=== PATIENT | female | born 1935 | race Caucasian/White ===

== ENCOUNTER 2019-01-10 13:39 | Inpatient (IN) | payer OTHER, BC ==
[~2019-01-10] VITALS: Ht 162.6 cm; Wt 77.6 kg
[2019-01-10 13:57] VITALS: BP_SYST 171
[2019-01-10] MEDS ORDERED: NS 500 ML IV ONE (14:15)
[2019-01-10 14:42] LABS: BASOPHILS % (AUTO) 0.6 % (0.0-2.0); EOSINOPHILS # (AUTO) 0.3 K/uL (0.0-0.4); EOSINOPHILS % (AUTO) 3.1 % (0.0-4.0); HEMATOCRIT 40.2 % (36-48); HEMOGLOBIN 14.2 g/dL (12.0-16.0); LYMPHOCYTES # (AUTO) 1.5 K/uL (1.0-5.5); LYMPHOCYTES % (AUTO) 17.3 % (20.5-51.5); MEAN CORPUSCULAR HEMOGLOBIN 34 pg (27-31); MEAN CORPUSCULAR HGB CONC 35 % (32-36); MEAN CORPUSCULAR VOLUME 97 fL (79.0-98.0); MONOCYTES # (AUTO) 0.4 K/uL (0.0-1.0); MONOCYTES % (AUTO) 4.8 % (1.7-9.3); NEUTROPHILS # (AUTO) 6.5 K/uL (1.8-7.7); NEUTROPHILS % (AUTO) 74.2 % (40.0-70.0); PLATELET COUNT (AUTO) 238 K/uL (130-430); RED BLOOD CELL COUNT(AUTO) 4.16 MIL/uL (4.2-6.2); WHITE BLOOD COUNT (AUTO) 8.7 K/uL (4.8-10.8)
[2019-01-10 14:56] LABS: ANION GAP 10 (5-15); CALCIUM 9.7 mg/dL (8.4-11.0); CHLORIDE 97 mmol/L (98-107); CREATININE 0.87 mg/dL (0.55-1.30); GLUCOSE 317 mg/dL (70-99); POTASSIUM 3.9 mmol/L (3.5-5.1); SODIUM SERUM 134 mmol/L (136-145); UREA NITROGEN, BLOOD 17 mg/dL (8-21)
[2019-01-10 15:10] LABS: ALANINE AMINOTRANSFERASE 39 U/L (12-78); ALBUMIN 4.2 g/dL (3.4-4.8); ASPARTATE AMINOTRANSFERASE 19 U/L (10-37); TOTAL BILIRUBIN 0.4 mg/dL (0.0-1.0)
[2019-01-10 15:44] LABS: BILIRUBIN,URINE NEGATIVE (NEGATIVE); CLARITY/URINE CLEAR (CLEAR); COLOR,URINE YELLOW (YELLOW); GLUCOSE,URINE 3+ (NEGATIVE); KETONES,URINE NEGATIVE (NEGATIVE); LEUKOCYTE ESTERASE ,URINE NEGATIVE (NEGATIVE); NITRITE, URINE NEGATIVE (NEGATIVE); PH,URINE 6.5 (5.0-8.0); PROTEIN URINE NEGATIVE (NEGATIVE); UROBILINOGEN,URINE 0.2 (0.2-1.0)
[2019-01-10] MEDS ORDERED: NACL 0.9% 2,000 ML IV ONE (15:45)
[2019-01-10 15:50] LABS: BLOOD, URINE TRACE (NEGATIVE)
[2019-01-10 15:59] LABS: BACTERIA,URINE None Seen /HPF (None Seen); MUCUS,URINE 1+ /LPF (None Seen); WBC,URINE 0-3 /HPF (0-3)
[2019-01-10] MEDS ORDERED: DEXTROSE 50%-WATER 50 ML DISP.SYRIN IVP PRN (18:00)
[2019-01-10] MEDS ORDERED: D5W 1,000 ML IV PRN (18:00)
[2019-01-10] MEDS ORDERED: GLUCOSE 15 GM GEL (in 37.5 GM TUBE) PO PRN (18:00)
[2019-01-10] MEDS ORDERED: BISA10SU61 RC (19:03)
[2019-01-10] MEDS ORDERED: DONE10TA44 PO (19:03)
[2019-01-10] MEDS ORDERED: LIP40 PO (19:03)
[2019-01-10] MEDS ORDERED: CLOP100P MC (19:03)
[2019-01-10] MEDS ORDERED: CILO100T PO (19:03)
[2019-01-10] MEDS ORDERED: FER300L PO (19:03)
[2019-01-10] MEDS ORDERED: DOCU-144 PO (19:03)
[2019-01-10 19:10] VITALS: BP_SYST 145
[2019-01-10 20:00] VITALS: BP_SYST 148
[2019-01-10] MEDS: INSULIN REGULAR, HUMAN 100 UNITS/ML, 10 ML VIAL (humuLIN R) SUBCUT PRN (21:06)
[2019-01-10] MEDS ORDERED: GABA-531 PO (21:15)
[2019-01-10] MEDS ORDERED: FLEETMO RC (21:15)
[2019-01-10] MEDS: LORazepam 2 MG/ML VIAL IVP PRN (21:27)
[2019-01-10] MEDS: NACL 0.9% 1,000 ML IV SCH (22:47)
[2019-01-11] VITALS: BP_SYST 138
[2019-01-11] MEDS: INSULIN REGULAR, HUMAN 100 UNITS/ML, 10 ML VIAL (humuLIN R) SUBCUT PRN ×3 (00:16→17:45)
[2019-01-11] MEDS ORDERED: MULT-1100 PO (01:02)
[2019-01-11] MEDS ORDERED: INSU100I4 SUBCUT (01:02)
[2019-01-11] MEDS ORDERED: MEMA5TAB PO (01:02)
[2019-01-11] MEDS ORDERED: ACET-2634 PO (01:02)
[2019-01-11] MEDS ORDERED: GLU500 PO (01:02)
[2019-01-11] MEDS ORDERED: MOM PO (01:02)
[2019-01-11] MEDS ORDERED: CHOL100062 PO (01:55)
[2019-01-11] MEDS ORDERED: ACET-2165 PO (01:55)
[2019-01-11] MEDS ORDERED: AZITHROMYCIN 500 MG in NS 250 ML IV SCH (02:15)
[2019-01-11] MEDS ORDERED: cefTRIAXone 1 GM in D5W 50 ML IV SCH (02:15)
[2019-01-11] MEDS ORDERED: NACL 0.9% 1,000 ML IV ONE ×2 (02:15)
[2019-01-11] MEDS ORDERED: cefTRIAXone 1 GM IVPB PREMIX 50 ML IV ONE (02:48)
[2019-01-11] MEDS ORDERED: AZITHROMYCIN 500 MG/VIAL (ZITHROMAX) IV ONE (02:48)
[2019-01-11 08:00] VITALS: BP_SYST 132
[2019-01-11] MEDS: LEVOFLOXACIN 250 MG/D5W 50 ML IV SCH (09:21)
[2019-01-11 12:08] VITALS: BP_SYST 124
[2019-01-11] MEDS: NACL 0.9% 1,000 ML IV SCH (14:46)
[2019-01-11 16:09] VITALS: BP_SYST 156
[2019-01-11 21:20] VITALS: BP_SYST 123
[2019-01-12 00:40] VITALS: BP_SYST 126
[2019-01-12] MEDS ORDERED: cefTRIAXone 1 GM IVPB PREMIX 50 ML IV ONE (03:03)
[2019-01-12] MEDS ORDERED: AZITHROMYCIN 500 MG/VIAL (ZITHROMAX) IV ONE (03:04)
[2019-01-12] MEDS: cefTRIAXone 1 GM in D5W 50 ML IV SCH (03:15)
[2019-01-12] MEDS: AZITHROMYCIN 500 MG in NS 250 ML IV SCH (03:17)
[2019-01-12] MEDS: LORazepam 2 MG/ML VIAL IVP PRN (04:53)
[2019-01-12 05:08] VITALS: BP_SYST 134
[2019-01-12] MEDS: INSULIN REGULAR, HUMAN 100 UNITS/ML, 10 ML VIAL (humuLIN R) SUBCUT PRN ×3 (07:04→17:59)
[2019-01-12 07:29] LABS: BASOPHILS % (AUTO) 0.6 % (0.0-2.0); EOSINOPHILS # (AUTO) 0.2 K/uL (0.0-0.4); EOSINOPHILS % (AUTO) 3.8 % (0.0-4.0); HEMATOCRIT 34.5 % (36-48); HEMOGLOBIN 12.2 g/dL (12.0-16.0); LYMPHOCYTES # (AUTO) 1.6 K/uL (1.0-5.5); LYMPHOCYTES % (AUTO) 24.6 % (20.5-51.5); MEAN CORPUSCULAR HEMOGLOBIN 34 pg (27-31); MEAN CORPUSCULAR HGB CONC 35 % (32-36); MEAN CORPUSCULAR VOLUME 96 fL (79.0-98.0); MONOCYTES # (AUTO) 0.4 K/uL (0.0-1.0); MONOCYTES % (AUTO) 6.3 % (1.7-9.3); NEUTROPHILS # (AUTO) 4.2 K/uL (1.8-7.7); NEUTROPHILS % (AUTO) 64.7 % (40.0-70.0); PLATELET COUNT (AUTO) 216 K/uL (130-430); RED BLOOD CELL COUNT(AUTO) 3.61 MIL/uL (4.2-6.2); RED CELL DISTRIBUTION WIDTH 12.7 % (9.0-15.0); WHITE BLOOD COUNT (AUTO) 6.4 K/uL (4.8-10.8)
[2019-01-12 07:44] LABS: ALANINE AMINOTRANSFERASE 29 U/L (12-78); ALBUMIN 3.2 g/dL (3.4-4.8); ANION GAP 7 (5-15); ASPARTATE AMINOTRANSFERASE 22 U/L (10-37); CALCIUM 8.2 mg/dL (8.4-11.0); CHLORIDE 105 mmol/L (98-107); CREATININE 0.78 mg/dL (0.55-1.30); GLUCOSE 193 mg/dL (70-99); POTASSIUM 3.3 mmol/L (3.5-5.1); SODIUM SERUM 139 mmol/L (136-145); TOTAL BILIRUBIN 0.5 mg/dL (0.0-1.0); UREA NITROGEN, BLOOD 10 mg/dL (8-21)
[2019-01-12 08:00] VITALS: BP_SYST 131
[2019-01-12] MEDS: LEVOFLOXACIN 250 MG/D5W 50 ML IV SCH (09:00)
[2019-01-12] MEDS: NACL 0.9% 1,000 ML IV SCH (10:00)
[2019-01-12 12:00] VITALS: BP_SYST 145
[2019-01-12] MEDS ORDERED: MILK OF MAGNESIA 30 ML UDC PO PRN (12:30)
[2019-01-12] MEDS ORDERED: ACETAMINOPHEN 500 MG TABLET PO PRN (12:30)
[2019-01-12] MEDS ORDERED: BISACODYL 10 MG/SUPPOSITORY RC PRN (12:45)
[2019-01-12] MEDS ORDERED: MEMANTINE HCL 5 MG TABLET PO ONE (13:00)
[2019-01-12] MEDS ORDERED: DOCUSATE SODIUM 100 MG CAPSULE PO ONE (13:00)
[2019-01-12] MEDS ORDERED: FERROUS SULFATE 300 MG/5 ML UDC PO ONE (13:00)
[2019-01-12] MEDS ORDERED: MULTIVITS,CA,MINERALS/IRON/FA 1 TABLET PO ONE (13:00)
[2019-01-12] MEDS ORDERED: CLOPIDOGREL BISULFATE 75 MG TABLET PO ONE (13:00)
[2019-01-12] MEDS ORDERED: CHOLECALCIFEROL (VITAMIN D3) 2,000 UNIT TABLET PO ONE (13:00)
[2019-01-12] MEDS ORDERED: GABAPENTIN 300 MG CAPSULE PO ONE (13:00)
[2019-01-12] MEDS: LORazepam 1 MG TABLET PO PRN ×2 (14:38→21:14)
[2019-01-12 16:07] VITALS: BP_SYST 138
[2019-01-12] MEDS: metFORMIN HCL 500 MG TABLET PO SCH (17:56)
[2019-01-12 20:00] VITALS: BP_SYST 143
[2019-01-12] MEDS: ATORVASTATIN 20 MG TABLET PO SCH (21:12)
[2019-01-12] MEDS: FERROUS SULFATE 300 MG/5 ML UDC PO SCH (21:12)
[2019-01-12] MEDS: MEMANTINE HCL 5 MG TABLET PO SCH (21:12)
[2019-01-12] MEDS: GABAPENTIN 300 MG CAPSULE PO SCH (21:12)
[2019-01-12] MEDS: QUEtiapine FUMARATE 100 MG TABLET PO SCH (21:12)
[2019-01-12] MEDS: DONEPEZIL HCL 5 MG TABLET (ARICEPT) PO SCH (21:12)
[2019-01-13] VITALS (7 sets, daily range): BP systolic 102–141
[2019-01-13] MEDS: AZITHROMYCIN 500 MG in NS 250 ML IV SCH (01:45)
[2019-01-13] MEDS: cefTRIAXone 1 GM in D5W 50 ML IV SCH (03:31)
[2019-01-13] MEDS: NACL 0.9% 1,000 ML IV SCH (07:00)
[2019-01-13] MEDS: INSULIN REGULAR, HUMAN 100 UNITS/ML, 10 ML VIAL (humuLIN R) SUBCUT PRN ×3 (07:19→17:36)
[2019-01-13] MEDS: CILOSTAZOL 50 MG TABLET (PLETAL) PO SCH (07:20)
[2019-01-13] MEDS: DOCUSATE SODIUM 100 MG CAPSULE PO SCH (08:51)
[2019-01-13] MEDS: FERROUS SULFATE 300 MG/5 ML UDC PO SCH ×2 (08:51→20:53)
[2019-01-13] MEDS: MULTIVITS,CA,MINERALS/IRON/FA 1 TABLET PO SCH (08:52)
[2019-01-13] MEDS: MEMANTINE HCL 5 MG TABLET PO SCH ×2 (08:52→20:54)
[2019-01-13] MEDS: CHOLECALCIFEROL (VITAMIN D3) 2,000 UNIT TABLET PO SCH (08:52)
[2019-01-13] MEDS: CLOPIDOGREL BISULFATE 75 MG TABLET PO SCH (08:53)
[2019-01-13] MEDS: GABAPENTIN 300 MG CAPSULE PO SCH ×2 (08:53→20:54)
[2019-01-13] MEDS: LEVOFLOXACIN 250 MG/D5W 50 ML IV SCH (08:54)
[2019-01-13] MEDS: metFORMIN HCL 500 MG TABLET PO SCH ×2 (08:58→17:34)
[2019-01-13] MEDS ORDERED: COMMUNICATION ORDER XX ONE (20:30)
[2019-01-13] MEDS: ATORVASTATIN 20 MG TABLET PO SCH (20:54)
[2019-01-13] MEDS: QUEtiapine FUMARATE 100 MG TABLET PO SCH (20:54)
[2019-01-13] MEDS: DONEPEZIL HCL 5 MG TABLET (ARICEPT) PO SCH (20:54)
[2019-01-13] MEDS: ENOXAPARIN SODIUM 40 MG/0.4 ML SYRINGE SUBCUT SCH (21:05)
[2019-01-14] MEDS: INSULIN REGULAR, HUMAN 100 UNITS/ML, 10 ML VIAL (humuLIN R) SUBCUT PRN ×4 (00:22→16:29)
[2019-01-14] MEDS: NACL 0.9% 1,000 ML IV SCH ×2 (01:15→20:47)
[2019-01-14 01:46] VITALS: BP_SYST 132
[2019-01-14] MEDS: cefTRIAXone 1 GM in D5W 50 ML IV SCH (03:07)
[2019-01-14] MEDS: CILOSTAZOL 50 MG TABLET (PLETAL) PO SCH (06:34)
[2019-01-14 07:44] VITALS: BP_SYST 130
[2019-01-14] MEDS: LEVOFLOXACIN 250 MG/D5W 50 ML IV SCH (08:16)
[2019-01-14] MEDS: metFORMIN HCL 500 MG TABLET PO SCH ×2 (08:17→17:17)
[2019-01-14] MEDS: CHOLECALCIFEROL (VITAMIN D3) 2,000 UNIT TABLET PO SCH (08:17)
[2019-01-14] MEDS: CLOPIDOGREL BISULFATE 75 MG TABLET PO SCH (08:17)
[2019-01-14] MEDS: MEMANTINE HCL 5 MG TABLET PO SCH ×2 (08:17→20:44)
[2019-01-14] MEDS: GABAPENTIN 300 MG CAPSULE PO SCH ×2 (08:18→20:45)
[2019-01-14] MEDS: MULTIVITS,CA,MINERALS/IRON/FA 1 TABLET PO SCH (08:18)
[2019-01-14] MEDS: DOCUSATE SODIUM 100 MG CAPSULE PO SCH (08:18)
[2019-01-14] MEDS: FERROUS SULFATE 300 MG/5 ML UDC PO SCH ×2 (08:18→20:44)
[2019-01-14 11:15] VITALS: BP_SYST 150
[2019-01-14 16:14] VITALS: BP_SYST 149
[2019-01-14 20:01] VITALS: BP_SYST 130
[2019-01-14] MEDS: QUEtiapine FUMARATE 100 MG TABLET PO SCH (20:44)
[2019-01-14] MEDS: DONEPEZIL HCL 5 MG TABLET (ARICEPT) PO SCH (20:45)
[2019-01-14] MEDS: ENOXAPARIN SODIUM 40 MG/0.4 ML SYRINGE SUBCUT SCH (20:46)
[2019-01-14] MEDS: ATORVASTATIN 20 MG TABLET PO SCH (20:56)
[2019-01-15 00:05] VITALS: BP_SYST 130
[2019-01-15] MEDS: INSULIN REGULAR, HUMAN 100 UNITS/ML, 10 ML VIAL (humuLIN R) SUBCUT PRN ×3 (00:18→17:33)
[2019-01-15] MEDS: cefTRIAXone 1 GM in D5W 50 ML IV SCH (02:54)
[2019-01-15] MEDS: CILOSTAZOL 50 MG TABLET (PLETAL) PO SCH (06:19)
[2019-01-15 06:24] LABS: ANION GAP 7 (5-15); CALCIUM 8.2 mg/dL (8.4-11.0); CHLORIDE 107 mmol/L (98-107); CREATININE 0.69 mg/dL (0.55-1.30); GLUCOSE 135 mg/dL (70-99); POTASSIUM 3.1 mmol/L (3.5-5.1); SODIUM SERUM 140 mmol/L (136-145); UREA NITROGEN, BLOOD 15 mg/dL (8-21)
[2019-01-15 06:35] LABS: BASOPHILS % (AUTO) 0.6 % (0.0-2.0); EOSINOPHILS # (AUTO) 0.2 K/uL (0.0-0.4); EOSINOPHILS % (AUTO) 3.3 % (0.0-4.0); HEMATOCRIT 31.6 % (36-48); HEMOGLOBIN 11.2 g/dL (12.0-16.0); LYMPHOCYTES # (AUTO) 1.7 K/uL (1.0-5.5); LYMPHOCYTES % (AUTO) 23.4 % (20.5-51.5); MEAN CORPUSCULAR HEMOGLOBIN 34 pg (27-31); MEAN CORPUSCULAR HGB CONC 36 % (32-36); MEAN CORPUSCULAR VOLUME 96 fL (79.0-98.0); MONOCYTES # (AUTO) 0.5 K/uL (0.0-1.0); MONOCYTES % (AUTO) 6.7 % (1.7-9.3); NEUTROPHILS # (AUTO) 4.7 K/uL (1.8-7.7); PLATELET COUNT (AUTO) 193 K/uL (130-430); WHITE BLOOD COUNT (AUTO) 7.1 K/uL (4.8-10.8)
[2019-01-15 08:03] VITALS: BP_SYST 146
[2019-01-15] MEDS: FERROUS SULFATE 300 MG/5 ML UDC PO SCH (08:12)
[2019-01-15] MEDS: DOCUSATE SODIUM 100 MG CAPSULE PO SCH (08:12)
[2019-01-15] MEDS: LEVOFLOXACIN 250 MG/D5W 50 ML IV SCH (08:12)
[2019-01-15] MEDS: GABAPENTIN 300 MG CAPSULE PO SCH (08:13)
[2019-01-15] MEDS: MULTIVITS,CA,MINERALS/IRON/FA 1 TABLET PO SCH (08:13)
[2019-01-15] MEDS: metFORMIN HCL 500 MG TABLET PO SCH ×2 (08:13→17:28)
[2019-01-15] MEDS: CHOLECALCIFEROL (VITAMIN D3) 2,000 UNIT TABLET PO SCH (08:13)
[2019-01-15] MEDS: CLOPIDOGREL BISULFATE 75 MG TABLET PO SCH (08:13)
[2019-01-15] MEDS ORDERED: MEMANTINE HCL 5 MG TABLET PO SCH (09:00)
[2019-01-15] MEDS ORDERED: FLU VACC TS2019(65UP)/MF59C/PF 45 MCG/0.5 ML SYRINGE I.M. PRN (10:15)
[2019-01-15 12:00] VITALS: BP_SYST 134
[2019-01-15] MEDS ORDERED: POTASSIUM CHLORIDE 20 MEQ TAB.PRT.SR PO ONE (14:00)
[2019-01-15 16:05] VITALS: BP_SYST 142
[2019-01-15 16:49] VITALS: BP_SYST 142
[2019-01-15] MEDS: NACL 0.9% 1,000 ML IV SCH (17:25)
== END 2019-01-15 19:04 | DRG 871 ==
LOC: SED 13:39 → STU 17:46 → SMU 01-14 16:56
PROVIDERS: ADMIT Internal Medicine; ATTEND Internal Medicine
DX: A41.9 Sepsis, unspecified organism (principal); G93.41 Metabolic encephalopathy; J18.9 Pneumonia, unspecified organism; E87.2 Acidosis; E11.65 Type 2 diabetes mellitus with hyperglycemia; F02.80 Dementia in other diseases classified elsewhere, unspecified severity, without behavioral disturbance, psychotic disturbance, mood disturbance, and anxiety; G30.9 Alzheimer's disease, unspecified; I10 Essential (primary) hypertension; Z78.1 Physical restraint status; Z79.899 Other long term (current) drug therapy; Z79.84 Long term (current) use of oral hypoglycemic drugs
CPT/HCPCS: 36415; 70450-TC; 71045; 72125-TC; 80048; 80053; 81000-TC; 82962; 83605; 84484; 85025; 87040-TC; 87081; 87086; 93005; 96360; 96361; 99285; G0378; J0456; J0696; J1650; J1815; J1956; J2060; J7030; J7040; J7050; J7060